=== PATIENT | male | born 1995 | race Caucasian/White ===

== ENCOUNTER 2020-07-08 11:30 | Emergency (ER) | payer BC ==
[~2020-07-08] VITALS: Ht 182.9 cm; Wt 94.1 kg
[2020-07-08] MEDS ORDERED: KETOROLAC TROMETHAMINE 30 MG/ML VIAL IV STA (13:30)
[2020-07-08] MEDS ORDERED: KETOROLAC TROMETHAMINE 30 MG/ML VIAL ONE (14:06)
[2020-07-08 14:53] VITALS: BP 119/70
== END 2020-07-08 14:32 | disposition home or self-care (01) ==
LOC: FSED 12:10
DX: R07.89 Other chest pain (principal); R06.02 Shortness of breath; R50.9 Fever, unspecified; R94.31 Abnormal electrocardiogram [ECG] [EKG]
CPT/HCPCS: 71046; 80053; 84484; 85025; 85379; 93005; 96374; 99284; J1885

== ENCOUNTER 2021-04-25 11:51 | Emergency (ER) | payer BC ==
[~2021-04-25] VITALS: Ht 177.8 cm; Wt 90.7 kg
[2021-04-25] MEDS ORDERED: CASIRIVIMAB/IMDEVIMAB 10 ML in SODIUM CHLORIDE 0.9% 100 ML IV ONE (12:15)
[2021-04-25 13:23] VITALS: BP 129/71
== END 2021-04-25 13:26 | disposition home or self-care (01) ==
LOC: ER 12:36
DX: U07.1 COVID-19 (principal); R05 Cough; R53.81 Other malaise
CPT/HCPCS: 99283; J7050